=== PATIENT | female | born 1980 | race Caucasian/White ===

== ENCOUNTER 2018-12-25 09:54 | Emergency (ER) | payer BC ==
[~2018-12-25] VITALS: Ht 160 cm; Wt 74.8 kg
[~2018-12-25 09:54] MED LIST: CARISOPRODOL 3350 MG PO; CELEXA40 MG PO; GLUCOPHAGE500 MG PO; HYDROCODON-ACE1 EA12 PO; IBUPROFEN 800800 MG PO; KEFLEX500 MG PO; LISINOPRIL; NICOTINE TRANSD21 M1 TRANSDERM; PREDNISONE 20 M20 M1 PO; TESSALON200 MG PO; VALIUM5 MG PO; VENTOLIN HFA INH8 GM IH; ZPAK PO
[2018-12-25] MEDS ORDERED: ZOCOR20 MG PO (10:14)
[2018-12-25] MEDS ORDERED: BACTRIM DS TAB1 EACH PO (10:14)
[2018-12-25] MEDS ORDERED: GABAPENTIN 100100 MG PO (10:14)
[2018-12-25] MEDS ORDERED: CYMBALTA20 MG PO (10:15)
[2018-12-25] MEDS ORDERED: DEPAKOTE125 MG PO (10:15)
[2018-12-25] MEDS ORDERED: DOXYCYCLINE 10100 MG PO (10:47)
[2018-12-25] MEDS ORDERED: IBUPROFEN 800800 M1 PO (10:47)
[2018-12-25] MEDS ORDERED: NORCO 5-325 TA1 EACH PO (10:47)
[2018-12-25 11:05] VITALS: BP 124/80
== END 2018-12-25 11:00 | disposition home or self-care (01) ==
LOC: M.ERS 09:54
DX: L02.31 Cutaneous abscess of buttock (principal); E11.9 Type 2 diabetes mellitus without complications; J45.909 Unspecified asthma, uncomplicated; Z88.1 Allergy status to other antibiotic agents

== ENCOUNTER 2021-01-05 13:51 | Emergency (ER) | payer BC ==
[~2021-01-05] VITALS: Ht 160 cm; Wt 57.6 kg
[~2021-01-05 13:51] MED LIST changes: +BACTRIM DS TAB1 EACH PO; +CYMBALTA20 MG PO; +DEPAKOTE125 MG PO; +DOXYCYCLINE 10100 MG PO; +GABAPENTIN 100100 MG PO; +IBUPROFEN 800800 M1 PO; +NORCO 5-325 TA1 EACH PO; +ZOCOR20 MG PO
[2021-01-05] MEDS ORDERED: BENTYL 10 MG CA10 M1 PO (14:23)
[2021-01-05 14:35] LABS: ABSOLUTE BASOPHILS 0.1 thou/uL (0.0-0.2); ABSOLUTE EOSINOPHILS 0.2 thou/uL (0.0-0.7); ABSOLUTE LYMPHOCYTES 5.9 thou/uL (0.8-5.3); ABSOLUTE MONOCYTES 0.5 thou/uL (0.0-1.2); ABSOLUTE NEUTROPHILS 6.6 thou/uL (1.6-8.1); BASOPHILS 0.9 %; EOSINOPHILS 1.5 %; HEMATOCRIT 39.9 % (37.0-47.0); HEMOGLOBIN 13.4 gm/dL (12.0-15.0); LYMPHOCYTES 44.1 %; MCH 33.6 pg (26.0-34.0); MCHC 33.5 g/dL (28.0-37.0); MCV 100.3 fL (80.0-100.0); MONOCYTES 3.5 %; MPV 7.8 fl. (7.2-11.1); NUCLEATED RBCS 0 /100WBC; PLATELET COUNT* 227 thou/uL (150-400); RBC 3.98 mil/uL (4.20-5.00); RDW-CV 13.8 % (10.5-14.5); WBC 13.3 thou/uL (4.0-11.0)
[2021-01-05 14:41] LABS: CALCIUM 9.3 mg/dL (8.5-10.1); CREATININE 0.7 mg/dL (0.6-1.3); POTASSIUM 3.6 mmol/L (3.5-5.1)
[2021-01-05 14:42] LABS: APTT 25.7 Seconds (25.0-31.3); PROTIME 10.7 Seconds (9.20-11.50)
[2021-01-05 15:05] LABS: ALBUMIN 3.4 g/dL (3.4-5.0); CK-MB MASS 1.1 ng/mL (<0.5-3.6); MAGNESIUM 1.8 mg/dL (1.8-2.4); TOTAL BILIRUBIN 0.2 mg/dL (<0.1-1.0); TOTAL PROTEIN 5.9 g/dL (6.4-8.2)
[2021-01-05 15:25] VITALS: BP 115/65
--- NOTE | 2021-01-05 18:57 | EKG ---
[place] [address] ELECTROCARDIOGRAM REPORT Name: ANNEMARIE MONTES DE OCA Room: [facility]#: [id number] Admission: 01/05/21 Attend Phys: Discharge: 01/05/21 Date of : 76 Date of Service: 01/05/21 1410 Report #: [id number] THIS REPORT FOR: //name// [facility] ED Test Date: 2021-01-05 Test Time: 14:10:19 Pat Name: ANNEMARIE GARCIAOYER Department: Room: Gender: F Machine Tool Operator: [facility] : 1980 Requested By: Richie Orellana Order Number: [id number] MD: Bo Naik Measurements Intervals [place] Rate: 67 P: 18 MO: 163 QRS: 75 QRSD: 105 T: 37 QT: 384 QTc: 406 Interpretive Statements Sinus rhythm No previous ECG available for comparison Electronically Signed On 01-05-2021 18:57:42 CDT by Bo Naik [email or web address] <ELECTRONICALLY SIGNED> By: Bo Naik MD, [facility] 01/05/21 1857 D: [id number] Bo Naik MD, FACC /EPI
== END 2021-01-05 15:26 | disposition home or self-care (01) ==
LOC: M.ERS 13:51
PROVIDERS: Family Medicine
DX: R11.10 Vomiting, unspecified (principal); Z20.822 Contact with and (suspected) exposure to COVID-19; I10 Essential (primary) hypertension; E78.00 Pure hypercholesterolemia, unspecified; E11.9 Type 2 diabetes mellitus without complications; J45.909 Unspecified asthma, uncomplicated; Z88.1 Allergy status to other antibiotic agents; Z90.710 Acquired absence of both cervix and uterus